=== PATIENT | female | born 1980 | race Caucasian/White ===

== ENCOUNTER 2017-11-17 11:53 | Emergency (ER) | payer MEDICAID ==
[~2017-11-17] VITALS: Ht 162.6 cm; Wt 99.0 kg
[~2017-11-17 11:53] MED LIST: HYDR-569 PO; HYDR1TAB PO; MOT200T PO; NORG1TAB56 PO
[2017-11-17 11:54] VITALS: BP 120/70
[2017-11-17] MEDS ORDERED: ALBU6.7H INH (12:59)
[2017-11-17] MEDS ORDERED: GUAI118S13 PO (12:59)
[2017-11-17] MEDS ORDERED: TAM75C PO (12:59)
[2017-11-25] MEDS ORDERED: AZIT-63 PO (15:31)
[2017-11-25] MEDS ORDERED: HYDR-3965 PO (15:33)
== END 2017-11-17 13:03 | disposition home or self-care (01) ==
LOC: EEVIPCON 11:53 → ER 11:53
DX: J06.9 Acute upper respiratory infection, unspecified (principal); R50.9 Fever, unspecified; Z98.890 Other specified postprocedural states; Z88.6 Allergy status to analgesic agent
CPT/HCPCS: 87502; 87503; 93005; 99284; 99285

== ENCOUNTER 2019-01-03 12:48 | Emergency (ER) | payer MEDICAID ==
[~2019-01-03] VITALS: Ht 165.1 cm; Wt 98.4 kg
[~2019-01-03 12:48] MED LIST changes: +ALBU6.7H INH; +HYDR-4383 PO; -HYDR-569 PO
[2019-01-03 12:55] VITALS: BP 126/72
[2019-01-03] MEDS ORDERED: TRAM50TA2 PO (13:26)
== END 2019-01-03 13:50 | disposition home or self-care (01) ==
LOC: ER 12:49
DX: S60.222A Contusion of left hand, initial encounter (principal); S60.221A Contusion of right hand, initial encounter; Z88.8 Allergy status to other drugs, medicaments and biological substances; Z79.899 Other long term (current) drug therapy; Y04.8XXA Assault by other bodily force, initial encounter; Y93.89 Activity, other specified; Y92.89 Other specified places as the place of occurrence of the external cause; Y99.8 Other external cause status
CPT/HCPCS: 99283

== ENCOUNTER 2023-04-12 18:12 | Emergency (ER) | payer MEDICAID ==
[~2023-04-12] VITALS: Ht 167.6 cm; Wt 225.0 kg
[~2023-04-12 18:12] MED LIST changes: -ALBU6.7H INH; +ALBU6.7H14 INH; -NORG1TAB56 PO; +NORG1TAB90 PO
[2023-04-12 18:59] VITALS: BP 159/87
[2023-04-12] MEDS ORDERED: HYDR-3965 PO (20:05)
[2023-04-12] MEDS ORDERED: ONDA4TAB12 PO (20:05)
[2023-04-12] MEDS ORDERED: clindamycin 150mg capsule PO ONE (20:05)
[2023-04-12] MEDS ORDERED: CLIN-142 PO (20:05)
== END 2023-04-12 20:24 | disposition home or self-care (01) ==
LOC: ER 18:12
DX: K04.7 Periapical abscess without sinus (principal); Z98.890 Other specified postprocedural states; Z72.89 Other problems related to lifestyle; Z88.8 Allergy status to other drugs, medicaments and biological substances; Z79.899 Other long term (current) drug therapy
CPT/HCPCS: 99283